=== PATIENT | female | born 1965 ===

== ENCOUNTER 2018-10-31 03:50 | Outpatient (CLI) | payer SELFPAY ==
[2018-10-31 09:04] LABS: CHOL/HDL RATIO 2.65 (0.00-4.99)
[2018-10-31 09:07] LABS: HEMOGLOBIN A1C 5.6 % (4.5-6.2)
== END 2018-10-31 23:59 | disposition home or self-care (01) ==
LOC: HW HEART 03:50
DX: Z13.6 Encounter for screening for cardiovascular disorders (principal)
CPT/HCPCS: 36415; G0438